=== PATIENT | female | born 1990 | race Caucasian/White ===

== ENCOUNTER → 2016-09-20 | Outpatient (CLI) | payer BC ==
[~2016-09-20] MED LIST: ATARAX50 MG PO; DEPO-PROVER150 MG/M1 IM; KLONOPIN 1MG1 MG PO; LAMICTAL 25MG T25 MG PO; LORTAB 5/500 501 TAB PO; NO HOME MEDICATIONS; ZOFRAN ODT4 MG PO
== END ==
LOC: BHSO 10:57
DX: F31.81 Bipolar II disorder (principal)
CPT/HCPCS: 90791-AI

== ENCOUNTER 2016-10-06 09:45 | Emergency (ER) | payer BC ==
[~2016-10-06] VITALS: Ht 144.8 cm; Wt 59.1 kg
[~2016-10-06 09:45] MED LIST changes: -ATARAX50 MG PO; -DEPO-PROVER150 MG/M1 IM; -KLONOPIN 1MG1 MG PO; -LAMICTAL 25MG T25 MG PO; -ZOFRAN ODT4 MG PO
[2016-10-06 09:47] VITALS: TEMP 98.2
[2016-10-06] MEDS ORDERED: KLONOPIN 1MG1 MG PO (09:51)
[2016-10-06] MEDS ORDERED: ATARAX50 MG PO (09:51)
[2016-10-06] MEDS ORDERED: LAMICTAL 25MG T25 MG PO (09:52)
[2016-10-06] MEDS ORDERED: DEPO-PROVER150 MG/M1 IM (09:52)
[2016-10-06 10:53] LABS: BASO # 0.1 (0.0-0.2); BASO % 0.8 % (0.0-2.0); EOS # 0.1 (0.0-0.7); EOS % 1.7 % (0-4.0); GRAN # 3.8 (1.4-6.5); GRAN % 58.8 % (42.2-75.2); HEMATOCRIT 40.3 % (37.0-47.0); HEMOGLOBIN 13.5 g/dl (12.5-16.0); LYMPH # 1.8 (1.2-3.4); LYMPH % 28.3 % (20.0-51.0); MEAN CELL VOLUME 89 fl (80.0-100.0); MEAN CORPUSCULAR HEMOGLOBIN 30 pg (27.0-31.0); MEAN CORPUSCULAR HGB CONC 34 g/dl (33.0-37.0); MEAN PLATELET VOLUME 9.4 fl (7.4-10.4); MONO # 0.7 (0.1-0.6); MONO % 10.2 % (1.7-9.3); PLATELET COUNT 261 K/mm3 (130-400); RED BLOOD COUNT 4.55 M/mm3 (4.10-5.30); REDCELL DISTRIBUTION WIDTH-CV 14.7 % (11.5-14.5); WHITE BLOOD COUNT 6.4 K/mm3 (4.8-10.8)
[2016-10-06 10:57] LABS: PH 7 (5-8); SQUAMOUS EPITHELIAL 0-2 /hpf; URINE APPEARANCE Clear; URINE BACTERIA None Seen /hpf; URINE BILIRUBIN Negative (NEGATIVE); URINE BLOOD Negative (NEGATIVE); URINE COLOR Straw; URINE GLUCOSE Negative (NEGATIVE); URINE KETONE Negative (NEGATIVE); URINE RBC 0-2 /hpf; URINE UROBILINOGEN Negative (NEGATIVE); URINE WBC 0-2 /hpf
[2016-10-06 11:00] LABS: ADJUSTED CALCIUM 9.5 mg/dL (8.4-10.2); ALANINE AMINOTRANSFERASE 14 U/L (9-52); ALBUMIN 4.5 gm/dL (3.5-5.0); ALKALINE PHOSPHATASE 59 U/L (50-136); ANION GAP 12 mmol/L (7-16); BLOOD UREA NITROGEN 7 mg/dL (7-17); CALCIUM 9.9 mg/dL (8.4-10.2); CARBON DIOXIDE 25 mmol/L (22-30); CHLORIDE 107 mmol/L (98-107); CREATININE, serum 0.86 mg/dL (0.52-1.25); GLUCOSE 95 mg/dL (74-106); LIPASE 178 U/L (23-300); POTASSIUM 3.8 mmol/L (3.4-5.0); SODIUM 144 mmol/L (137-145); TOTAL PROTEIN 7.3 gm/dL (6.4-8.2)
[2016-10-06 11:01] LABS: C-REACTIVE PROTEIN < 0.5 mg/dL (0.0-0.9)
[2016-10-06] MEDS ORDERED: ZOFRAN ODT4 MG PO (12:16)
[2016-10-06 13:07] VITALS: BP 131/85; PULSE 75
== END 2016-10-06 13:06 | disposition home or self-care (01) ==
LOC: COL.ER 09:45
PROVIDERS: Family Medicine
DX: R10.84 Generalized abdominal pain (principal); R19.7 Diarrhea, unspecified; R11.0 Nausea; F31.9 Bipolar disorder, unspecified; F17.210 Nicotine dependence, cigarettes, uncomplicated
CPT/HCPCS: J2405; J7030

== ENCOUNTER → 2016-10-17 | Outpatient (CLI) | payer BC ==
[~2016-10-17] MED LIST changes: +ATARAX50 MG PO; +DEPO-PROVER150 MG/M1 IM; +KLONOPIN 1MG1 MG PO; +LAMICTAL 25MG T25 MG PO; +ZOFRAN ODT4 MG PO
== END ==
LOC: COL.RAD 09:26
DX: R10.84 Generalized abdominal pain (principal); R19.7 Diarrhea, unspecified
CPT/HCPCS: A9537

== ENCOUNTER → 2016-10-17 | Outpatient (CLI) | payer BC | LOC: BHSO 08:26 | DX: F31.81 Bipolar II disorder (principal) ==

== ENCOUNTER → 2016-12-19 | Outpatient (CLI) | payer BC | LOC: BHSO 08:53 | DX: F31.81 Bipolar II disorder (principal) ==

== ENCOUNTER → 2017-09-04 | Outpatient (CLI) | payer BC | LOC: BHSO 08:45 | DX: F31.81 Bipolar II disorder (principal) | CPT/HCPCS: G0463 ==

== ENCOUNTER → 2017-10-02 | Outpatient (CLI) | payer BC | LOC: BHSO 13:32 | DX: F31.81 Bipolar II disorder (principal) | CPT/HCPCS: G0463 ==

== ENCOUNTER → 2017-11-14 | Outpatient (CLI) | payer BC | LOC: BHSO 14:19 | DX: F41.1 Generalized anxiety disorder (principal) | CPT/HCPCS: G0463 ==

== ENCOUNTER → 2018-01-15 | Outpatient (CLI) | payer BC | LOC: BHSO 09:34 | DX: F41.1 Generalized anxiety disorder (principal) | CPT/HCPCS: G0463 ==

== ENCOUNTER → 2018-04-18 | Outpatient (CLI) | payer BC | LOC: BHSO 09:43 | DX: F31.81 Bipolar II disorder (principal) | CPT/HCPCS: G0463 ==

== ENCOUNTER → 2018-07-17 | Outpatient (CLI) | payer BC | LOC: BHSO 08:50 | DX: F31.81 Bipolar II disorder (principal) | CPT/HCPCS: G0463 ==

== ENCOUNTER → 2018-10-17 | Outpatient (CLI) | payer BC | LOC: BHSO 09:31 | DX: F90.0 Attention-deficit hyperactivity disorder, predominantly inattentive type (principal) | CPT/HCPCS: G0463 ==

== ENCOUNTER → 2018-11-26 | Outpatient (CLI) | payer BC | LOC: BHSO 09:53 | DX: F90.0 Attention-deficit hyperactivity disorder, predominantly inattentive type (principal) | CPT/HCPCS: G0463 ==

== ENCOUNTER → 2019-02-12 | Outpatient (CLI) | payer BC | LOC: BHSO 08:57 | DX: F90.0 Attention-deficit hyperactivity disorder, predominantly inattentive type (principal) | CPT/HCPCS: G0463 ==